=== PATIENT | male | born 1975 | race Caucasian/White ===

== ENCOUNTER → 2020-05-08 | Outpatient (CLI) | payer BC ==
--- NOTE | 2020-05-08 17:45 | REP ---
LEFT KNEE SERIES: Five views, left knee performed. There is a tiny calcific density along the lateral tibial spine, which may represent a tiny avulsion fracture. Otherwise, no acute fracture or dislocation is seen. There is a moderate joint effusion. I see no other significant finding. IMPRESSION: Possible avulsion fracture lateral tibial spine. Moderate joint effusion. Electronically Signed by Damien Ohara MD 05/18/2020 11:24 A
== END ==
LOC: M LRY 13:58
PROVIDERS: ATTEND Physician Assistant
DX: M25.462 Effusion, left knee (principal)

== ENCOUNTER → 2020-07-11 | Outpatient (CLI) | payer BC | LOC: M LABSMTC 10:41 | PROVIDERS: ATTEND Orthopaedic Surgery | DX: Z20.828 Contact with and (suspected) exposure to other viral communicable diseases (principal) | CPT/HCPCS: C9803; U0003 ==